=== PATIENT | female | born 1990 | race African-American/Black ===

== ENCOUNTER 2024-12-20 16:49 | Emergency (ER) | payer BC ==
[~2024-12-20] VITALS: Ht 177.8 cm; Wt 74.8 kg
[2024-12-20 17:06] VITALS: BP 123/90; TEMP 98; O2SAT 99
[2024-12-20] MEDS ORDERED: IBUP-1955 PO (18:04)
== END 2024-12-21 04:29 | disposition home or self-care (01) ==
LOC: ER 16:57
DX: S83.8X2A Sprain of other specified parts of left knee, initial encounter (principal); F19.10 Other psychoactive substance abuse, uncomplicated; W01.0XXA Fall on same level from slipping, tripping and stumbling without subsequent striking against object, initial encounter; Y93.89 Activity, other specified; Y92.34 Swimming pool (public) as the place of occurrence of the external cause; Y99.8 Other external cause status
CPT/HCPCS: 73564-TC; 73590-TC

== ENCOUNTER 2025-01-24 18:34 | Emergency (ER) | payer BC ==
[~2025-01-24] VITALS: Ht 177.8 cm; Wt 81.6 kg
[~2025-01-24 18:34] MED LIST: IBUP-1955 PO
[2025-01-24 19:57] LABS: PLATELET COUNT (AUTO) 219 K/uL (150-450); RED BLOOD CELL COUNT(AUTO) 3.82 MIL/uL (4.0-5.2); RED CELL DISTRIBUTION WIDTH 13.1 % (11.5-15.0); WHITE BLOOD COUNT (AUTO) 8.6 K/uL (4.3-11.0)
[2025-01-24 20:02] LABS: CALCIUM, SERUM 8.7 mg/dL (8.5-10.1); CREATININE 0.8 mg/dL (0.6-1.3); SODIUM SERUM 137.0 mmol/L (136-145); UREA NITROGEN, BLOOD 13.0 mg/dL (7-18)
[2025-01-24 20:15] LABS: NT-PRO BNP 54.0 pg/mL (0-125)
[2025-01-24 21:15] VITALS: BP 142/75; TEMP 98.1; O2SAT 99
== END 2025-01-24 21:16 | disposition home or self-care (01) ==
LOC: ER 18:42
DX: R22.43 Localized swelling, mass and lump, lower limb, bilateral (principal); M79.604 Pain in right leg; M79.605 Pain in left leg; F32.A Depression, unspecified; R07.9 Chest pain, unspecified; R06.02 Shortness of breath; F41.9 Anxiety disorder, unspecified; F19.10 Other psychoactive substance abuse, uncomplicated; Z79.899 Other long term (current) drug therapy; Z86.59 Personal history of other mental and behavioral disorders
CPT/HCPCS: 36415; 71045-TC; 80048-TC; 83880; 85025-TC; 93970-TC

== ENCOUNTER 2025-02-12 09:40 | Emergency (ER) | payer BC ==
[~2025-02-12] VITALS: Ht 180.3 cm; Wt 72.6 kg
[2025-02-12 09:47] VITALS: TEMP 98
[2025-02-12 10:15] LABS: PLATELET COUNT (AUTO) 258 K/uL (150-450); RED BLOOD CELL COUNT(AUTO) 3.85 MIL/uL (4.0-5.2); RED CELL DISTRIBUTION WIDTH 13.0 % (11.5-15.0); WHITE BLOOD COUNT (AUTO) 6.7 K/uL (4.3-11.0)
[2025-02-12 10:40] LABS: SODIUM SERUM 141.0 mmol/L (136-145)
[2025-02-12 10:41] LABS: CALCIUM, SERUM 8.7 mg/dL (8.5-10.1); CREATININE 0.6 mg/dL (0.6-1.3); UREA NITROGEN, BLOOD 15.0 mg/dL (7-18)
[2025-02-12 10:43] LABS: ASPARTATE AMINOTRANSFERASE 16.0 U/L (15-37); TOTAL PROTEIN, SERUM 6.4 g/dL (6.4-8.2)
[2025-02-12] MEDS ORDERED: ONDA4TAB5 PO (10:55)
[2025-02-12 11:07] LABS: PREGNANCY TEST URINE QUAL NEGATIVE (NEGATIVE)
[2025-02-12 11:08] LABS: APPEARANCE,URINE CLEAR (CLEAR); BLOOD, URINE N Ery/uL (NEGATIVE); UGLUCOSE NEGATIVE (NEGATIVE)
[2025-02-12 11:09] LABS: LEUKOCYTE ESTERASE ,URINE 1+ (NEGATIVE); NITRITE, URINE NEGATIVE (NEGATIVE)
[2025-02-12 11:25] LABS: ADD URINE CULTURE YES; SQUAMOUS EPITHELIAL CELL,UR Moderate /HPF (None Seen)
[2025-02-12] MEDS: IV NS 0.9% 1,000 ML BAG IV ONE (11:36)
[2025-02-12] MEDS ORDERED: ONDANSETRON HCL/PF 4 MG/2 ML VIAL ONE (11:42)
[2025-02-12] MEDS: ONDANSETRON HCL/PF 4 MG/2 ML VIAL IVP ONE (11:45)
[2025-02-12 12:50] VITALS: BP 116/64; O2SAT 98
== END 2025-02-12 12:49 | disposition home or self-care (01) ==
LOC: ER 09:46
DX: R11.2 Nausea with vomiting, unspecified (principal); B34.9 Viral infection, unspecified; M79.10 Myalgia, unspecified site; F15.10 Other stimulant abuse, uncomplicated; F19.10 Other psychoactive substance abuse, uncomplicated; Z20.822 Contact with and (suspected) exposure to COVID-19
CPT/HCPCS: 99283; 96374; 96361; 87426; 87804 ×2; 85025; 80048; 87086; 83690; 80076; 84703; 81001; 36415; J2405; J7030